=== PATIENT | female | born 1930 | race Caucasian/White ===

== ENCOUNTER 2017-11-29 10:58 | Outpatient (CLI) | payer MEDICARE | END 2017-11-29 23:59 | disposition home or self-care (01) | LOC: 64 CT 10:58 | PROVIDERS: ATTEND Specialist | DX: J90 Pleural effusion, not elsewhere classified (principal); J98.11 Atelectasis; I48.0 Paroxysmal atrial fibrillation; R06.02 Shortness of breath; I48.4 Atypical atrial flutter | CPT/HCPCS: 71250 ==

== ENCOUNTER 2017-12-20 09:45 | Outpatient (CLI) | payer MEDICARE ==
[~2017-12-20] VITALS: Ht 172.7 cm; Wt 65.8 kg
[2017-12-20] MEDS ORDERED: albuterol 2.5 MG/3 ML nebule NEB PRN (10:50)
== END 2017-12-20 23:59 | disposition home or self-care (01) ==
LOC: RT 09:45 → EDUNIT# 10:30 → RT 23:59
PROVIDERS: ATTEND Specialist
DX: R91.8 Other nonspecific abnormal finding of lung field (principal); R06.02 Shortness of breath; Z79.899 Other long term (current) drug therapy
CPT/HCPCS: 94060; 94640; 94727; 94729